=== PATIENT | female | born 1975 | race African-American/Black ===

== ENCOUNTER 2022-08-10 08:52 | Observation (INO) ==
--- NOTE | 2022-08-10 09:03 | DR.ALLERGY ---
HPI Time Seen Time Seen by Provider: 08/10/22 09:03 PE Vitals Vital Signs: Pulse Resp BP Pulse Ox O2 Del Method 08/10/22 20:30 100 H 20 97 08/10/22 20:30 147/81 08/10/22 20:15 102 H 23 95 08/10/22 20:15 145/74 08/10/22 20:08 104 H 21 97 08/10/22 20:08 143/78 08/10/22 20:00 103 H 17 96 08/10/22 19:45 105 H 24 98 08/10/22 19:38 113 H 92 L 08/10/22 19:15 92 H 19 98 08/10/22 19:15 149/76 08/10/22 19:00 84 31 H 97 08/10/22 19:00 148/77 08/10/22 18:45 83 20 97 08/10/22 18:45 161/83 08/10/22 18:30 165/84 08/10/22 18:30 83 17 96 08/10/22 18:30 165/84 08/10/22 18:17 82 18 96 08/10/22 18:15 167/92 08/10/22 18:14 85 20 97 08/10/22 18:04 82 17 94 L 08/10/22 18:00 166/91 08/10/22 17:57 87 23 97 08/10/22 17:45 84 17 94 L 08/10/22 17:45 166/93 08/10/22 17:30 85 18 95 08/10/22 17:30 163/89 08/10/22 17:15 87 17 94 L 08/10/22 17:15 161/92 08/10/22 17:00 87 14 94 L 08/10/22 17:00 178/87 08/10/22 16:45 84 15 93 L 08/10/22 16:45 84 15 93 L 08/10/22 16:45 169/87 08/10/22 16:30 85 17 95 08/10/22 16:30 163/87 08/10/22 16:15 87 17 94 L 08/10/22 16:15 161/83 08/10/22 16:00 90 16 93 L 08/10/22 16:00 145/72 08/10/22 15:45 147/75 08/10/22 15:45 90 17 94 L 08/10/22 15:45 147/75 08/10/22 15:30 92 H 19 95 08/10/22 15:30 142/72 08/10/22 15:15 92 H 31 H 97 08/10/22 15:15 151/73 08/10/22 15:00 96 H 21 95 08/10/22 15:00 149/73 08/10/22 14:45 98 H 20 94 L 08/10/22 14:45 146/77 08/10/22 14:30 96 H 96 08/10/22 14:30 156/80 08/10/22 14:15 90 18 98 08/10/22 14:00 94 H 20 98 08/10/22 13:45 91 H 19 98 08/10/22 13:30 85 16 97 08/10/22 13:15 85 15 98 08/10/22 13:00 81 16 97 08/10/22 12:45 76 33 H 99 08/10/22 12:30 72 19 99 08/10/22 12:15 76 16 100 08/10/22 12:00 72 16 100 08/10/22 11:45 71 14 100 08/10/22 11:30 68 15 99 08/10/22 11:15 65 14 99 08/10/22 11:00 68 14 100 08/10/22 10:45 63 12 100 08/10/22 10:39 151/84 08/10/22 10:37 64 13 100 08/10/22 10:30 61 13 99 08/10/22 10:15 70 25 H 99 08/10/22 10:00 67 23 100 08/10/22 09:45 69 13 99 08/10/22 09:31 68 16 97 08/10/22 09:31 98/57 08/10/22 09:30 68 17 98 08/10/22 09:17 65 24 97 08/10/22 09:17 186/89 08/10/22 09:16 65 20 97 08/10/22 09:15 70 26 H 95 08/10/22 09:02 77 95 08/10/22 09:02 174/87 08/10/22 09:01 76 97 08/10/22 09:07 83 24 174/87 99 Room Air ROR Labs Reviewed Result Diagrams: 08/11/22 05:26 08/11/22 05:26 Laboratory: WBC 9.0 X10^3/uL (3.6-10.0) 08/10/22 09:40 RBC 4.74 X10^6/uL (3.5-5.4) 08/10/22 09:40 Hgb 9.5 g/dL (12.0-16.0) L 08/10/22 09:40 Hct 30.5 % (36.0-47.0) L 08/10/22 09:40 MCV 64.4 fL (80.0-100.0) L 08/10/22 09:40 MCH 20.0 pg (27.0-34.0) L 08/10/22 09:40 MCHC 31.1 g/dL (33.0-35.0) L 08/10/22 09:40 RDW 17.5 % (11.6-16.5) H 08/10/22 09:40 Plt Count 364 X10^3/uL (150.0-450.0) 08/10/22 09:40 Plt Count Comment Adequate (ADEQUATE) 08/10/22 09:40 MPV 8.1 fL (7.4-11.0) 08/10/22 09:40 Neut % (Auto) 25.1 % (42.0-75.0) L 08/10/22 09:40 Lymph % (Auto) 59.8 % (21.0-51.0) H 08/10/22 09:40 Pierce % (Auto) 12.4 % (0.0-13.0) 08/10/22 09:40 Eos % (Auto) 2.4 % (0.9-2.9) 08/10/22 09:40 Baso % (Auto) 0.3 % (0.2-1.0) 08/10/22 09:40 Neut # (Auto) 2.3 x10^3/uL (2.2-4.8) 08/10/22 09:40 Lymph # (Auto) 5.4 X10^3/uL (1.3-2.9) H 08/10/22 09:40 Pierce # (Auto) 1.1 x10^3/uL (0.3-0.8) H 08/10/22 09:40 Eos # (Auto) 0.2 x10^3/uL (0.0-0.2) 08/10/22 09:40 Baso # (Auto) 0.0 X10^3/uL (0.0-0.1) 08/10/22 09:40 Absolute Nucleated RBC 0.2 /100WBC 08/10/22 09:40 Plt Morphology Comment Normal (NORMAL) 08/10/22 09:40 RBC Morphology Abnormal (NORMAL) A 08/10/22 09:40 Microcytosis 2+ A 08/10/22 09:40 Sodium 138 mmol/L (136-145) 08/10/22 09:40 Corrected Sodium 138 mmol/L (136-145) 08/10/22 09:40 Potassium 3.4 mmol/L (3.5-5.1) L 08/10/22 09:40 Chloride 103 mmol/L (98-107) 08/10/22 09:40 Carbon Dioxide 25.6 mmol/L (21-32) 08/10/22 09:40 BUN 10 mg/dL (7-18) 08/10/22 09:40 Creatinine 0.87 mg/dL (0.55-1.02) 08/10/22 09:40 Est GFR (MDRD) Af Amer > 60 (>60) 08/10/22 09:40 Est GFR (MDRD) Non-Af > 60 (>60) 08/10/22 09:40 Glucose 118 mg/dL (65-99) H 08/10/22 09:40 Calcium 8.5 mg/dL (8.5-10.1) 08/10/22 09:40 Corrected Calcium 9.2 mg/dL (8.5-10.1) 08/10/22 09:40 Total Bilirubin 0.60 mg/dL (0.2-1.0) 08/10/22 09:40 AST 9 Units/L (15-37) L 08/10/22 09:40 ALT 8 Units/L (12-78) L 08/10/22 09:40 Alkaline Phosphatase 76 Units/L (46-116) 08/10/22 09:40 Total Protein 7.9 g/dL (6.4-8.2) 08/10/22 09:40 Albumin 3.1 g/dL (3.4-5.0) L 08/10/22 09:40 Globulin 4.8 g/dL (2.5-4.5) H 08/10/22 09:40 Albumin/Globulin Ratio 0.6 Ratio (1.1-2.1) L 08/10/22 09:40 SARS-CoV-2 (PCR) Negative (NEGATIVE) 08/10/22 18:50 Influenza Type A (PCR) Negative (NEGATIVE) 08/10/22 18:50 Influenza Type B (PCR) Negative (NEGATIVE) 08/10/22 18:50 RSV (PCR) Negative (NEGATIVE) 08/10/22 18:50 S. pyogenes (TEM-PCR) Not detected (NOT DETECT) 08/10/22 18:50 Opioid Opioid Risk Tool Total: 0 Total Score Risk Category: Low Risk Copyright: Андрей SUAREZ predicting aberrant behaviors Discharge Plan Discharge Plan Patient Disposition: 01 HOME, SELF-CARE Condition: Stable Orders to Discharge Patient Discharge Orders: Discharge (Routine); Ordered 08/11/22 Ordered By: SONA STEIN
[2022-08-10] MEDS ORDERED: SOLU-Medrol 125 MG VIAL IVP ONE ×3 (09:04→18:25)
[2022-08-10] MEDS ORDERED: BENADRYL INJ 50 MG VIAL IVP ONE ×3 (09:04→18:25)
[2022-08-10] MEDS ORDERED: ADRENALINE CHL INJ IVP ONE (09:04)
[2022-08-10] MEDS ORDERED: ADRENALINE CHL INJ ONE ×3 (09:06→18:29)
--- NOTE | 2022-08-10 09:22 | EKG ---
Test Reason : TACHYCARDIA, SOB Blood Pressure : */* mmHG Vent. Rate : 72 BPM Atrial Rate : 72 BPM P-R Int : 186 ms QRS Dur : 94 ms QT Int : 406 ms P-R-T Axes : 37 -20 -4 degrees QTc Int : 444 ms Normal sinus rhythm Possible Left atrial enlargement Incomplete right bundle branch block Left ventricular hypertrophy ( R in aVL , Louie product ) Abnormal ECG No previous ECGs available Confirmed by Abdelrahman Bass ([id number]) on 08/10/2022 10:46:29 AM Referred By: Confirmed By: Abdelrahman Bass
[2022-08-10] MEDS ORDERED: BENADRYL INJ 50 MG VIAL ONE ×3 (09:27→18:30)
[2022-08-10] MEDS ORDERED: SOLU-Medrol 125 MG VIAL ONE ×3 (09:27→18:29)
[2022-08-10] MEDS ORDERED: NS 1,000 ML IV 1,000 ML ONE (09:36)
[2022-08-10] MEDS ORDERED: NS 1,000 ML IV 1,000 ML IV ONE (09:46)
[2022-08-10 09:54] LABS: EOSINOPHILS # (AUTO) 0.2 x10^3/uL (0.0-0.2); HEMATOCRIT 30.5 % (36.0-47.0); HEMOGLOBIN 9.5 g/dL (12.0-16.0); LYMPHOCYTES # (AUTO) 5.4 X10^3/uL (1.3-2.9); MEAN CORPUSCULAR HGB CONC 31.1 g/dL (33.0-35.0); MEAN PLATELET VOLUME 8.1 fL (7.4-11.0); MONOCYTES # (AUTO) 1.1 x10^3/uL (0.3-0.8); RED BLOOD COUNT 4.74 X10^6/uL (3.5-5.4)
[2022-08-10 09:59] LABS: BASOPHILS % (AUTO) 0.3 % (0.2-1.0); EOSINOPHILS % (AUTO) 2.4 % (0.9-2.9); LYMPHOCYTES % (AUTO) 59.8 % (21.0-51.0); MEAN CORPUSCULAR VOLUME 64.4 fL (80.0-100.0); MONOCYTES % (AUTO) 12.4 % (0.0-13.0); NEUTROPHILS # (AUTO) 2.3 x10^3/uL (2.2-4.8); NEUTROPHILS % (AUTO) 25.1 % (42.0-75.0); RED CELL DISTRIBUTION WIDTH 17.5 % (11.6-16.5)
[2022-08-10 10:03] LABS: ALANINE AMINOTRANSFERASE 8 Units/L (12-78); ALBUMIN 3.1 g/dL (3.4-5.0); ALKALINE PHOSPHATASE 76 Units/L (46-116); ASPARTATE AMINO TRANSFERASE 9 Units/L (15-37); BLOOD UREA NITROGEN 10 mg/dL (7-18); CALCIUM 8.5 mg/dL (8.5-10.1); CARBON DIOXIDE 25.6 mmol/L (21-32); CHLORIDE 103 mmol/L (98-107); COR CA(FOR HYPOALB) 9.2 mg/dL (8.5-10.1); COR NA(FOR HYPERGLY) 138 mmol/L (136-145); CREATININE 0.87 mg/dL (0.55-1.02); SODIUM 138 mmol/L (136-145); TOTAL PROTEIN 7.9 g/dL (6.4-8.2); eGFR NON BLACK RACES > 60 (>60)
[2022-08-10 10:13] LABS: MICROCYTOSIS 2+; PLATELET MORPHOLOGY COMMENT NORMAL (NORMAL)
[2022-08-10] MEDS ORDERED: ADRENALINE CHL INJ IM ONE ×2 (11:32→18:24)
[2022-08-10] MEDS ORDERED: PEPCID 20 MG VIAL 20 MG in NS 50 ML IV 50 ML IV ONE (11:33)
[2022-08-10] MEDS ORDERED: PEPCID 20 MG VIAL ONE (11:35)
[2022-08-10] MEDS ORDERED: NS 50 ML IV 50 ML IV ONE (11:35)
[2022-08-10 19:20] LABS: STREP A BY PCR NOT DETECTED (NOT DETECT)
--- NOTE | 2022-08-10 19:55 | CT ---
HISTORYALLERGIC REACTION; S/SX OF FEELING LIKE HER THROAT IS CLOSING, UNABLE TO SWALLOW, TONGUE SWOLLEN, SLURRED SPEECH D/T EDEMA IN MOUTH.STUDYCT neck with IV contrastCOMPARISONNoneTECHNIQUEMultiple axial images of the soft tissue neck were obtained from skull base to the aortic arch [after] the administration of IV contrast. Sagittal and coronal reformats were performed and reviewed. Dose reduction techniques including Automated Exposure Control (AEC) and adjustment of mA and kV were utilized.FINDINGSThere is edema within the epiglottis and mucosa of the supraglottic region. This causes moderate airway narrowing. The edema is asymmetrically more prominent in the left supraglottic region. No abnormalities are seen in the larynx.No tonsillar enlargement is seen. No retropharyngeal edema is seen. Thyroid gland appears normal. There is mild edema in the deep subcutaneous soft tissues at the level of the larynx. It may be angioedema.Probably reactive lymph nodes are seen in the neck. The parotid and submandibular glands appear normal.IMPRESSIONEdema in the epiglottis and supraglottic mucosa could be allergic reaction but infectious pharyngitis could cause a similar appearance. There is moderate airway narrowing. There is likely mild adjacent angioedema in the deep subcutaneous soft tissues near this region.Electronically signed by: Srinath Martinez (Aug 10, 2022 19:53:01)
[2022-08-10] MEDS ORDERED: ZITHROMAX INJ 500 MG VIAL 500 MG in NS 250 ML IV 250 ML IV SCH (20:31)
[2022-08-10] MEDS ORDERED: NS 250 ML IV 250 ML IV ONE (20:37)
[2022-08-10] MEDS ORDERED: ZITHROMAX INJ 500 MG VIAL IV ONE (20:37)
[2022-08-10] MEDS ORDERED: D5 1/2 NS 1,000 ML 1,000 ML IV ONE (20:39)
[2022-08-10] MEDS: D5 1/2 NS 1,000 ML 1,000 ML IV SCH (20:52)
[2022-08-10] MEDS ORDERED: TORADOL 30 MG VIAL IVP ONE (21:05)
[2022-08-10] MEDS ORDERED: TORADOL 30 MG VIAL ONE (21:14)
[2022-08-10 21:59] VITALS: BMI 36.8
[2022-08-11] MEDS: BENADRYL INJ 50 MG VIAL IV SCH ×2 (00:41→08:08)
[2022-08-11] MEDS: SOLU-Medrol 125 MG VIAL IVP SCH ×3 (00:41→08:07)
[2022-08-11] MEDS ORDERED: TORADOL 30 MG VIAL IVP PRN (03:00)
[2022-08-11] MEDS: D5 1/2 NS 1,000 ML 1,000 ML IV SCH (05:36)
[2022-08-11 06:24] LABS: BASOPHILS % (AUTO) 0.1 % (0.2-1.0); HEMATOCRIT 29.8 % (36.0-47.0); HEMOGLOBIN 9.3 g/dL (12.0-16.0); LYMPHOCYTES # (AUTO) 1.7 X10^3/uL (1.3-2.9); MEAN CORPUSCULAR HEMOGLOBIN 19.8 pg (27.0-34.0); MEAN CORPUSCULAR HGB CONC 31.4 g/dL (33.0-35.0); MEAN CORPUSCULAR VOLUME 63.1 fL (80.0-100.0); MEAN PLATELET VOLUME 8.4 fL (7.4-11.0); MONOCYTES # (AUTO) 0.2 x10^3/uL (0.3-0.8); MONOCYTES % (AUTO) 2.5 % (0.0-13.0); NEUTROPHILS # (AUTO) 7.5 x10^3/uL (2.2-4.8); NEUTROPHILS % (AUTO) 79.4 % (42.0-75.0); RED BLOOD COUNT 4.72 X10^6/uL (3.5-5.4); RED CELL DISTRIBUTION WIDTH 17.9 % (11.6-16.5); WHITE BLOOD COUNT 9.5 X10^3/uL (3.6-10.0)
[2022-08-11 06:39] LABS: ALANINE AMINOTRANSFERASE 14 Units/L (12-78); ALBUMIN 2.9 g/dL (3.4-5.0); ALKALINE PHOSPHATASE 72 Units/L (46-116); ASPARTATE AMINO TRANSFERASE 10 Units/L (15-37); BLOOD UREA NITROGEN 10 mg/dL (7-18); CALCIUM 8.2 mg/dL (8.5-10.1); CHLORIDE 103 mmol/L (98-107); COR CA(FOR HYPOALB) 9.1 mg/dL (8.5-10.1); COR NA(FOR HYPERGLY) 137 mmol/L (136-145); CREATININE 0.75 mg/dL (0.55-1.02); SODIUM 136 mmol/L (136-145); TOTAL PROTEIN 7.9 g/dL (6.4-8.2); eGFR NON BLACK RACES > 60 (>60)
[2022-08-11 07:20] LABS: MICROCYTOSIS 2+; PLATELET MORPHOLOGY COMMENT NORMAL (NORMAL)
[2022-08-11 09:20] VITALS: BP 134/75
[2022-08-11] MEDS ORDERED: ZITHROMAX INJ 500 MG VIAL 500 MG in NS 250 ML IV 250 ML IV SCH (21:00)
== END 2022-08-11 11:15 | disposition home or self-care (01) ==
LOC: ER 08:52 → MED/SURG 08:52
PROVIDERS: ADMIT Obstetrics & Gynecology Obstetrics; ATTEND Obstetrics & Gynecology Obstetrics
DX: E87.6 Hypokalemia; R94.31 Abnormal electrocardiogram [ECG] [EKG]; I10 Essential (primary) hypertension; J05.10 Acute epiglottitis without obstruction; T78.3XXA Angioneurotic edema, initial encounter; R13.11 Dysphagia, oral phase; T78.2XXA Anaphylactic shock, unspecified, initial encounter; Z20.822 Contact with and (suspected) exposure to COVID-19; R06.02 Shortness of breath